=== PATIENT | female | born 1955 | race Caucasian/White ===

== ENCOUNTER 2018-11-06 15:21 | Emergency (ER) | payer BC ==
[~2018-11-06] VITALS: Ht 152.4 cm; Wt 56.7 kg
== END 2018-11-06 20:56 | disposition home or self-care (01) ==
LOC: ER 15:21
DX: S52.572A Other intraarticular fracture of lower end of left radius, initial encounter for closed fracture (principal); S90.32XA Contusion of left foot, initial encounter; W18.09XA Striking against other object with subsequent fall, initial encounter; Y93.89 Activity, other specified; Y92.89 Other specified places as the place of occurrence of the external cause; Y99.8 Other external cause status